=== PATIENT | female | born 1995 | race Caucasian/White ===

== ENCOUNTER 2022-01-30 14:19 | Emergency (ER) | payer SELFPAY ==
[~2022-01-30] VITALS: Ht 157.5 cm; Wt 56.0 kg
[2022-01-30 14:33] VITALS: BP 133/82
[2022-01-30] MEDS ORDERED: ACET-2708 MT (15:55)
[2022-01-30] MEDS ORDERED: GUAI120017 MT (15:55)
== END 2022-01-30 16:28 | disposition home or self-care (01) ==
LOC: EDBD 14:19 → ER 14:19
DX: B34.9 Viral infection, unspecified (principal); Z20.822 Contact with and (suspected) exposure to COVID-19
CPT/HCPCS: 71045; 87426; 87804; 99284; C9803